=== PATIENT | female | born 1935 | race Caucasian/White ===

== ENCOUNTER 2016-05-20 13:38 | Outpatient (CLI) | payer MEDICARE, OTHER | END 2016-05-20 13:39 | disposition home or self-care (01) | DX: M17.12 Unilateral primary osteoarthritis, left knee (principal) ==

== ENCOUNTER 2016-09-15 11:02 | Outpatient (CLI) | payer MEDICARE, OTHER | END 2016-09-15 11:03 | disposition home or self-care (01) | DX: R41.3 Other amnesia (principal) ==

== ENCOUNTER 2017-03-29 09:49 | Outpatient (CLI) | payer MEDICARE, OTHER ==
--- NOTE | 2017-03-29 12:03 | XRAY Report ---
TWO-VIEW CHEST: 03/29/2017 CLINICAL INDICATION: Cough. FINDINGS: Frontal and lateral views of the chest demonstrate a normal cardiac silhouette. The lungs are clear. No effusion or pneumothorax is present. IMPRESSION: NO EVIDENCE OF ACUTE CARDIOPULMONARY DISEASE. NO SIGNIFICANT INTERVAL CHANGE FROM 06/20. JOB #: [id number] EXT JOB #:[id number]
--- NOTE | 2017-03-29 12:04 | XRAY Report ---
TWO-VIEW RIGHT HIP: 03/29/2017 CLINICAL INDICATION: Pain. FINDINGS: Frontal view of the hips and pelvis and frogleg lateral view of the right hip demonstrate mild osteoarthritis, with marginal osteophytes. There is no evidence of fracture or dislocation. No radiopaque foreign body is seen in the soft tissues. IMPRESSION: MILD OSTEOARTHRITIS. JOB #: [id number] EXT JOB #:[id number]
--- NOTE | 2017-03-29 12:06 | XRAY Report ---
COMPLETE CERVICAL SPINE: 03/29/2017 CLINICAL INDICATION: Pain, decreased range of motion. FINDINGS: AP, lateral, oblique, odontoid views of the cervical spine demonstrate qimkxrwz-jv-kzwrin degenerative disc and facet disease, with disk space narrowing worst at C5-6. There is left worse th an right osseous neural foraminal narrowing from C5 to C7. There is no evidence of fracture or sublu xation. Prevertebral soft tissues are unremarkable. IMPRESSION: [id number] DEGENERATIVE CHANGES, WITH OSSEOUS NEURAL FORAMINAL NARROWING. JOB #: [id number] EXT JOB #:[id number]
== END 2017-03-29 09:50 | disposition home or self-care (01) ==
LOC: DI.S 09:49
PROVIDERS: ATTEND Physician Assistant
DX: M16.11 Unilateral primary osteoarthritis, right hip (principal); M50.30 Other cervical disc degeneration, unspecified cervical region; M47.892 Other spondylosis, cervical region; R05 Cough
CPT/HCPCS: 71020; 72050

== ENCOUNTER 2018-01-23 09:18 | Outpatient (CLI) | payer MEDICARE, OTHER ==
[2018-01-23 18:23] LABS: ALBUMIN 4.3 g/dL (3.2-5.5); ALBUMIN/GLOBULIN RATIO 1.5 (1.0-2.2); ALKALINE PHOSPHATASE 47 IU/L (42-121); ALT ALANINE AMINOTRANSFERASE 19 IU/L (10-60); AST ASPARTATE AMINOTRANSFERASE 30 IU/L (10-42); BUN - BLOOD UREA NITROGEN 20 mg/dL (6-20); CALCIUM 9.4 mg/dL (8.5-10.3); CARBON DIOXIDE - CO2 25 mmol/L (21-32); CHLORIDE 104 mmol/L (101-111); CHOL/HDL RATIO 3.5 (<4.4); CHOLESTEROL 332 mg/dL; CREATININE 0.9 mg/dL (0.4-1.0); GFR - MDRD 60 (>89); GLUCOSE 91 mg/dL (70-100); HDL CHOLESTEROL 95 mg/dL; LDL CHOLESTEROL,CALCULATED 222 mg/dL; LDL/HDL RATIO 2.3 (<4.4); SODIUM 138 mmol/L (135-145); TOTAL PROTEIN 7.1 g/dL (6.7-8.2); VLDL CHOLESTEROL 15 mg/dL
[2018-01-23 18:55] LABS: BASOPHILS % (AUTO) 0.9 %; EOSINOPHILS # (AUTO) 0.1 10^3/uL (0.0-0.7); EOSINOPHILS % (AUTO) 2.9 %; HGB - HEMOGLOBIN 14.1 g/dL (12.0-16.0); LYMPHOCYTES % (AUTO) 25.1 %; MEAN CORPUSCULAR HEMOGLOBIN 32.1 pg (27.0-31.0); MEAN CORPUSCULAR HGB CONC 33.5 g/dL (32.0-36.0); MEAN CORPUSCULAR VOLUME 95.7 fL (81.0-99.0); MEAN PLATELET VOLUME 10.1 fL (7.9-10.8); MONOCYTES # (AUTO) 0.3 10^3/uL (0.0-1.0); MONOCYTES % (AUTO) 7.7 %; NEUTROPHILS # (AUTO) 2.6 10^3/uL (1.5-6.6); NEUTROPHILS % (AUTO) 63.4 %; PLT - PLATELET COUNT 223 10^3/uL (130-450); RED BLOOD COUNT 4.39 10^6/uL (4.20-5.40); RED CELL DISTRIBUTION WIDTH 13.5 % (12.0-15.0); WHITE BLOOD COUNT 4.1 x10^3/uL (4.8-10.8)
[2018-01-23 19:20] LABS: PLATELET ESTIMATE, MANUAL NORMAL (130-450,000) (NORMAL); RBC MORPHOLOGY (MULTIPLE) NORMAL APPEARANCE (NORMAL)
== END 2018-01-23 09:19 | disposition home or self-care (01) ==
LOC: LAB.F 09:18
PROVIDERS: ATTEND Physician Assistant
DX: I10 Essential (primary) hypertension (principal); E78.5 Hyperlipidemia, unspecified; G64 Other disorders of peripheral nervous system; R41.3 Other amnesia
CPT/HCPCS: 36415; 80053; 80061; 83721; 84443; 85025

== ENCOUNTER 2018-01-25 12:53 | Outpatient (CLI) | payer MEDICARE, OTHER ==
--- NOTE | 2018-01-26 11:03 | Mammography Report ---
Reason: UNSPECIFIED LUMP IN UNSPECIFIED BREAST Procedure Date: 01/25/2018 Accession Number: [id number] / [id number] Procedure: ARLIN - Diagnostic Dig Bilat CPT Code: FULL RESULT: EXAM: Diagnostic Dig Bilat DATE: 01/25/2018 1:42 PM CLINICAL HISTORY: 82-year-old female who presents with bilateral lumps with tenderness for approximately 1 month. TECHNIQUE: Bilateral CC and MLO views were obtained. Left spot magnified CC and MLO views were also obtained. COMPARISON: 08/10/2012, 06/20/2010, 06/12/2009, 04/04/2008. FINDINGS: The breasts demonstrate heterogeneously dense fibroglandular parenchyma bilaterally. No mammographic correlate is identified to the 2 palpable markers placed on the right breast. Typically benign coarse calcifications and typically benign large rodlike calcifications are identified bilaterally. A focal asymmetry seen in the left breast resolves with spot mammographic views. No suspicious architectural distortion, mass or suspicious calcifications are identified. IMPRESSION: Benign findings RECOMMENDATION: Recommend routine annual Screening mammography unless otherwise clinically indicated. BIRADS CATEGORY 2: Benign findings STANDARD QUALIFYING STATEMENTS: 1. This examination was not reviewed with the aid of Computer-Aided Detection (CAD). 2. A negative or benign imaging report should not delay biopsy if clinically suspicious findings are present. Consider surgical consultation if warrented. More than 5% of cancers are not identified by imaging. 3. Dense breasts may obscure an underlying neoplasm.
== END 2018-01-25 12:54 | disposition home or self-care (01) ==
LOC: DI 12:53
PROVIDERS: ATTEND Physician Assistant
DX: N63.23 Unspecified lump in the left breast, lower outer quadrant (principal); N63.10 Unspecified lump in the right breast, unspecified quadrant; I10 Essential (primary) hypertension; R07.9 Chest pain, unspecified
CPT/HCPCS: 71046; 77066

== ENCOUNTER 2018-01-25 12:56 | Outpatient (CLI) | payer MEDICARE, OTHER ==
--- NOTE | 2018-01-25 16:45 | XRAY Report ---
Reason: CHEST WALL HTN,TENDERNESS L UPPER/MILD CHEST Procedure Date: 01/25/2018 Accession Number: [id number] / [id number] Procedure: XR - Chest 2 View X-Ray CPT Code: 18519 FULL RESULT: EXAM: CHEST RADIOGRAPHY EXAM DATE: 01/25/2018 02:25 PM. CLINICAL HISTORY: CHEST WALL HTN,TENDERNESS L UPPER/MILD CHEST. COMPARISON: CHEST 2 VIEW PA/LAT 03/29/2017 10:03 AM. TECHNIQUE: 2 views. FINDINGS: Lungs/Pleura: No focal opacities evident. No pleural effusion. No pneumothorax. Normal volumes. Mediastinum: Heart and mediastinal contours are unremarkable. Other: None. IMPRESSION: No acute cardiopulmonary abnormality. RADIA
== END 2018-01-25 12:57 | disposition home or self-care (01) ==
LOC: DI 12:56
PROVIDERS: ATTEND Physician Assistant
DX: R07.9 Chest pain, unspecified (principal); I10 Essential (primary) hypertension
CPT/HCPCS: 71046

== ENCOUNTER 2018-12-12 09:51 | Outpatient (CLI) | payer MEDICARE, OTHER ==
--- NOTE | 2018-12-12 10:52 | XRAY Report ---
Reason: PAIN IN RIGHT HIP JOINT, LOW BACK PAIN, DYSPNEA ON Procedure Date: 12/12/2018 Accession Number: [id number] / [id number] Procedure: XRS - Lumbar Spine 2 View CPT Code: FULL RESULT: EXAM: LUMBOSACRAL SPINE RADIOGRAPHY EXAM DATE: 12/12/2018 10:24 AM. CLINICAL HISTORY: Low back pain. COMPARISONS: HIP BILAT 12/12/2018 10:18 AM. TECHNIQUE: 3 views. FINDINGS: Alignment: Grade 1-2 anterolisthesis at L4-L5 measuring 8 mm is seen. Bones: Five koh-hdj-ffkbqbr lumbar vertebral bodies are present. No fractures or bone lesions. Disks: There is moderate diffuse degenerative disk disease seen throughout the mid and lower aspects of the lumbar spine. Facets: There is moderate diffuse degenerative facet disease seen throughout the mid and lower aspect of the lumbar spine. Sacroiliac Joints: Unremarkable. Soft Tissues: Normal. The visualized bowel gas pattern is normal. IMPRESSION: Grade 1-2 anterolisthesis at L4-L5 with superimposed moderate degenerative changes. Underlying spinal canal stenosis is suspected. No fracture. RADIA
--- NOTE | 2018-12-12 10:53 | XRAY Report ---
Reason: PAIN IN RIGHT HIP JOINT, LOW BACK PAIN, DYSPNEA ON Procedure Date: 12/12/2018 Accession Number: [id number] / [id number] Procedure: XRS - Hips 2V BILAT CPT Code: FULL RESULT: EXAM: BILATERAL HIP RADIOGRAPHY EXAM DATE: 12/12/2018 10:24 AM. CLINICAL HISTORY: Bilateral hip pain. COMPARISON: HIP W/PELVIS 2-3V RT 03/29/2017 10:22 AM. TECHNIQUE: 2 views each. FINDINGS: Bones: Normal. No fractures or bone lesion. Right Hip: Mild osteoarthritic changes are seen. No significant joint space narrowing is seen. Alignment is preserved. Left Hip: Moderate osteoarthritic changes are seen. Mild joint space narrowing is seen. Alignment is preserved. Soft Tissues: Normal. No soft tissue swelling. IMPRESSION: Mild to moderate bilateral hip DJD, left side worse than right side. Appearance is similar to 03/29/2017. No acute findings. RADIA
--- NOTE | 2018-12-12 10:53 | XRAY Report ---
Reason: PAIN IN RIGHT HIP JOINT, LOW BACK PAIN, DYSPNEA ON Procedure Date: 12/12/2018 Accession Number: [id number] / [id number] Procedure: XRS - Chest 2 View X-Ray CPT Code: 02532 FULL RESULT: EXAM: CHEST RADIOGRAPHY EXAM DATE: 12/12/2018 10:24 AM. CLINICAL HISTORY: Shortness of breath. COMPARISON: CHEST 2 VIEW 01/25/2018 2:19 PM. TECHNIQUE: 2 views. FINDINGS: Lungs/Pleura: No focal opacities evident. No pleural effusion. No pneumothorax. Normal volumes. Mediastinum: Heart and mediastinal contours are notable for aortic calcification. Other: None. IMPRESSION: No acute cardiopulmonary abnormality demonstrated. RADIA
== END 2018-12-12 09:52 | disposition home or self-care (01) ==
LOC: DI.S 09:51
PROVIDERS: ATTEND Physician Assistant
DX: M16.0 Bilateral primary osteoarthritis of hip (principal); R06.00 Dyspnea, unspecified; M51.36 Other intervertebral disc degeneration, lumbar region; M47.816 Spondylosis without myelopathy or radiculopathy, lumbar region; M43.16 Spondylolisthesis, lumbar region
CPT/HCPCS: 71046; 72100; 73521

== ENCOUNTER 2019-05-20 17:26 | Outpatient (CLI) | payer MEDICARE, OTHER | END 2019-05-20 17:27 | disposition critical access hospital (66) | LOC: EMS 17:26 | PROVIDERS: ATTEND Surgery | DX: S09.90XA Unspecified injury of head, initial encounter (principal); R41.0 Disorientation, unspecified; R53.83 Other fatigue; W18.30XA Fall on same level, unspecified, initial encounter; Y92.030 Kitchen in apartment as the place of occurrence of the external cause | CPT/HCPCS: A0425; A0429 ==

== ENCOUNTER 2019-05-20 18:01 | Emergency (ER) | payer MEDICARE, OTHER ==
[2019-05-20] MEDS ORDERED: TETANUS/DIPHTHERIA/PERTUSSIS 0.5 ML SYRINGE IM ONE (18:27)
--- NOTE | 2019-05-20 18:28 | ED Physician Documentation ---
PD HPI HEAD INJURY - Stated complaint Stated Complaint: GLF - Chief complaint Chief Complaint: Trauma Hd/Nk - History obtained from History obtained from: Patient - History of Present Illness Mechanism of head injury: Fell (83-year-old woman presents by ambulance after a fall, she is confused and does not remember the fall. In fact she can even tell me where she is right now. She cannot state that she is in the hospital. She says the year is 193. The nurse called the daughter who said they suspect she has dementia. Reportedly she lives alone. Reportedly also has been drinking today.) Review of Systems Unable to obtain: AMS, Confused, Dementia PD PAST MEDICAL HISTORY - Present Medications Home Medications: Ambulatory Orders Medication Instructions Recorded Confirmed Ciprofloxacin [Cipro] 250 mg PO Q12H #10 tablet 05/20/19 - Allergies Allergies/Adverse Reactions: Allergies Allergy/AdvReac Type Severity Reaction Status Date / Time No Known Drug Allergies Allergy Verified 05/20/19 18:15 PD ED PE NORMAL - Vitals Vital signs reviewed: Yes - General General: Other (She is alert to person only, poor historian for recent events.) - HEENT HEENT: PERRL, EOMI, Other (A poorly characterized wound in the back of the head, incompletely evaluated in initial evaluation because of overlying blood, I will ask 1 of the techs to clean it up so I get a better look.) - Neck Neck: No bony TTP - Cardiac Cardiac: RRR, No murmur - Respiratory Respiratory: No respiratory distress, Clear bilaterally - Abdomen Abdomen: Normal bowel sounds, Soft, Non tender - Back Back: No CVA TTP, No spinal TTP - Derm Derm: Normal color, Warm and dry - Extremities Extremities: No edema, No calf tenderness / cord - Neuro Neuro: No motor deficit, No sensory deficit, Normal speech Results - Vitals Vitals: Vital Signs - 24 hr 05/20/19 18:06 Temperature 36.8 C Heart Rate 64 Respiratory 18 Rate Blood Pressure 150/90 H O2 Saturation 96 Oxygen O2 Source Room air - Labs Labs: Laboratory Tests 05/20/19 05/20/19 05/20/19 18:41 18:41 18:41 WBC 5.3 RBC 4.22 Hgb 13.1 Hct 40.9 MCV 96.9 MCH 31.0 MCHC 32.0 RDW 13.0 Plt Count 237 MPV 11.1 H Neut # (Auto) 3.3 Lymph # (Auto) 1.3 L [place] # (Auto) 0.4 Eos # (Auto) 0.2 Baso # (Auto) 0.0 Absolute Nucleated RBC 0.00 Nucleated RBC % 0.0 Sodium 139 Potassium 3.7 Chloride 103 Carbon Dioxide 24 Anion Gap 12.0 BUN 20 Creatinine 1.0 Estimated GFR (MDRD) 53 L Glucose 109 H Lactic Acid 2.2 Calcium 9.6 Total Bilirubin 0.3 AST 29 ALT 24 Alkaline Phosphatase 51 Total Protein 7.1 Albumin 4.2 Globulin 2.9 Albumin/Globulin Ratio 1.4 Lipase 40 TSH Urine Color Urine Clarity Urine pH Ur Specific [place] Urine Protein Urine Glucose (UA) Urine Ketones Urine Occult Blood Urine Nitrite Urine Bilirubin Urine Urobilinogen Ur Leukocyte Esterase Urine RBC Urine WBC Urine WBC Clumps Ur Squamous Epith Cells Urine Bacteria Ur Microscopic Review Urine Culture Comments Ethyl Alcohol 186.6 05/20/19 05/20/19 18:41 19:00 WBC RBC Hgb Hct MCV MCH MCHC RDW Plt Count MPV Neut # (Auto) Lymph # (Auto) [place] # (Auto) Eos # (Auto) Baso # (Auto) Absolute Nucleated RBC Nucleated RBC % Sodium Potassium Chloride Carbon Dioxide Anion Gap BUN Creatinine Estimated GFR (MDRD) Glucose Lactic Acid Calcium Total Bilirubin AST ALT Alkaline Phosphatase Total Protein Albumin Globulin Albumin/Globulin Ratio Lipase TSH 1.50 Urine Color YELLOW Urine Clarity HAZY Urine pH 6.0 Ur Specific [place] 1.010 Urine Protein NEGATIVE Urine Glucose (UA) NEGATIVE Urine Ketones NEGATIVE Urine Occult Blood NEGATIVE Urine Nitrite POSITIVE H Urine Bilirubin NEGATIVE Urine Urobilinogen 0.2 (NORMAL) Ur Leukocyte Esterase SMALL H Urine RBC 0-5 Urine WBC 6-10 H Urine WBC Clumps PRESENT Ur Squamous Epith Cells FEW Squamous Urine Bacteria Few Ur Microscopic Review INDICATED Urine Culture Comments INDICATED Ethyl Alcohol PD MEDICAL DECISION MAKING - ED course ED course: This is an 83-year-old woman who presents by ambulance after fall hitting the back of her head, she seems altered, unclear initially how much of this is acute or chronic. Supportive son and eventually arrived, did not seem surprised of her blood alcohol level. Says though that she is pretty much at her baseline and they are pursuing alternative living arrangements because he agrees it is no longer safe for her to live alone The wound on the back of her head was cleansed, it was just a small abrasion. Wound care advice was given to the son. She was given Cipro for apparent UTI as well. Departure - Departure Disposition: 01 Home, Self Care Clinical Impression: Concussion Qualifiers: Encounter type: initial encounter Loss of consciousness presence/duration: with LOC of 30 min or less Qualified Code(s): S06.0X1A - Concussion with loss of consciousness of 30 minutes or less, initial encounter Injury of head and neck Qualifiers: Encounter type: initial encounter Qualified Code(s): S09.90XA - Unspecified injury of head, initial encounter; S19.9XXA - Unspecified injury of neck, initial encounter Dementia Qualifiers: Dementia type: unspecified type Dementia behavioral disturbance: without behavioral disturbance Qualified Code(s): F03.90 - Unspecified dementia without behavioral disturbance Alcohol intoxication Qualifiers: Complication of substance-induced condition: with delirium Qualified Code(s): F10.921 - Alcohol use, unspecified with intoxication delirium UTI (urinary tract infection) Qualifiers: Urinary tract infection type: acute cystitis Hematuria presence: without hematuria Qualified Code(s): N30.00 - Acute cystitis without hematuria Condition: Good Record reviewed to determine appropriate education?: Yes Instructions: ED Alcohol Intoxication Prescriptions: Ciprofloxacin [Cipro] 250 mg PO Q12H #10 tablet Comments: Avoid alcohol, return for new or worsening symptoms, as discussed a recommend consideration of alternative living arrangements where you do not live alone. You can also discuss this with Chelsea Lopez. Continue to not drive as you are already not doing. We will culture your urine, the results should be done in 48-72 hours. If an antibiotic change is necessary we will call you. Return if worse in the meantime, especially if you develop increasing flank pain, fevers, or cannot keep down the medication.
[2019-05-20 18:47] LABS: BASOPHILS % (AUTO) 0.8 %; EOSINOPHILS # (AUTO) 0.2 10^3/uL (0.0-0.7); EOSINOPHILS % (AUTO) 3.6 %; HGB - HEMOGLOBIN 13.1 g/dL (12.0-16.0); LYMPHOCYTES # (AUTO) 1.3 10^3/uL (1.5-3.5); LYMPHOCYTES % (AUTO) 24.1 %; MEAN CORPUSCULAR VOLUME 96.9 fL (81.0-99.0); MEAN PLATELET VOLUME 11.1 fL (7.9-10.8); MONOCYTES # (AUTO) 0.4 10^3/uL (0.0-1.0); MONOCYTES % (AUTO) 8.3 %; NEUTROPHILS # (AUTO) 3.3 10^3/uL (1.5-6.6); NEUTROPHILS % (AUTO) 62.8 %; PLT - PLATELET COUNT 237 10^3/uL (130-450); RED BLOOD COUNT 4.22 10^6/uL (4.20-5.40); WHITE BLOOD COUNT 5.3 x10^3/uL (4.8-10.8)
[2019-05-20 18:57] LABS: ALBUMIN 4.2 g/dL (3.2-5.5); ALBUMIN/GLOBULIN RATIO 1.4 (1.0-2.2); BILIRUBIN,TOTAL 0.3 mg/dL (0.2-1.0); CALCIUM 9.6 mg/dL (8.5-10.3); TOTAL PROTEIN 7.1 g/dL (6.7-8.2)
[2019-05-20 19:18] LABS: BILIRUBIN,URINE NEGATIVE (NEGATIVE); GLUCOSE, URINE (UA) NEGATIVE (NEGATIVE); KETONES,URINE (UA) NEGATIVE (NEGATIVE); LEUKOCYTE ESTERASE, URINE SMALL (NEGATIVE); NITRITE,URINE POSITIVE (NEGATIVE); OCCULT BLOOD,URINE NEGATIVE (NEGATIVE); PROTEIN,URINE NEGATIVE (NEGATIVE); UROBILINOGEN,URINE 0.2 (NORMAL) E.U./dL (NORMAL)
[2019-05-20 19:20] LABS: CLARITY,URINE HAZY (CLEAR)
[2019-05-20 19:31] LABS: BACTERIA,URINE Few /HPF (None Seen); RBC,URINE 0-5 /HPF (0-5); SQUAMOUS EPITHELIAL CELL,UR FEW Squamous (<= Few); WBC CLUMPS,URINE PRESENT
--- NOTE | 2019-05-20 20:16 | CT Report ---
Reason: head injury Procedure Date: 05/20/2019 Accession Number: [id number] / [id number] Procedure: CT - HEAD WO CPT Code: Final Report FULL RESULT: EXAM: CT HEAD EXAM DATE: 05/20/2019 06:52 PM. CLINICAL HISTORY: Head injury. COMPARISON: HEAD W/O 09/15/2016 11:17 AM. TECHNIQUE: Multiaxial CT images were obtained from the foramen magnum to the vertex. Reformats: Sagittal and coronal. IV contrast: None. In accordance with CT protocol optimization, one or more of the following dose reduction techniques were utilized for this exam: automated exposure control, adjustment of mA and/or KV based on patient size, or use of iterative reconstructive technique. FINDINGS: Parenchyma: No intraparenchymal hemorrhage. No evidence of mass, midline shift, or CT findings of infarction. June-white differentiation is distinct. Some decreased attenuation in the periventricular white matter is likely chronic microangiopathy. Unchanged compared to the prior exam. Extraaxial Spaces: Volume loss consistent with age. No subdural or epidural collections identified. Ventricles: Normal in size and position. Sinuses and Orbits: Imaged paranasal sinuses, orbits, and mastoids show no significant abnormality. Bones: No evidence of fracture or calvarial defect. Other: None. IMPRESSION: No acute intracranial abnormality. RADIA
--- NOTE | 2019-05-20 20:24 | CT Report ---
Reason: head injury Procedure Date: 05/20/2019 Accession Number: [id number] / [id number] Procedure: CT - CERVICAL SPINE WO CPT Code: Final Report FULL RESULT: EXAM: CT CERVICAL SPINE WITHOUT CONTRAST DATE: 05/20/2019 06:52 PM. HISTORY: Head injury. COMPARISONS: HEAD W/O 09/15/2016 11:17 AM CERVICAL SPINE COMPLETE 03/29/2017 10:12 AM. TECHNIQUE: Thin-section axial images were acquired of the cervical spine without contrast. Post-processing: Coronal and sagittal reformats. Other: None. In accordance with CT protocol optimization, one or more of the following dose reduction techniques were utilized for this exam: automated exposure control, adjustment of mA and/or KV based on patient size, or use of iterative reconstructive technique. FINDINGS: Alignment: 2 mm of retrolisthesis of C5 on C6 and 2 mm of anterolisthesis of C7 on T1. Similar appearance on plain films of the cervical spine from 03/29/2017. Bones: No fracture or bone lesion. Interspace Levels/Facets: C1-C2: Unremarkable. C2-C3: Mild to moderate disk height loss. Mild right facet disease. C3-C4: Mild disk height loss. Moderate to severe left facet disease and neural foraminal stenosis. No central canal stenosis. C4-C5: Moderate to severe left facet disease and neural foraminal stenosis. No central canal stenosis. C5-C6: Moderate to severe disk height loss. Uncovertebral hypertrophic changes and facet disease. Moderate to severe bilateral neural foraminal stenosis, right more than left. C6-C7: Moderate to severe disk height loss. Uncovertebral hypertrophic changes and facet disease. Mild to moderate bilateral neural foraminal stenosis, right more than left. C7-T1: Mild bilateral facet arthropathy, moderate to severe bilateral neural foraminal stenosis. No central canal stenosis. Musculature: Mild fatty atrophy of the paraspinal musculature. Other: The paravertebral and prevertebral soft tissues are unremarkable. The lung apices are clear. IMPRESSION: Degenerative disk disease, but no acute fracture or subluxation. RADIA
[2019-05-20] MEDS ORDERED: CIPROFLOXACIN 250 MG TABLET PO STA (20:28)
[2019-05-20 20:43] VITALS: BP 152/80
== END 2019-05-20 20:57 | disposition home or self-care (01) ==
LOC: EDUNIT# → ED 18:01
DX: S06.0X1A Concussion with loss of consciousness of 30 minutes or less, initial encounter (principal); S00.01XA Abrasion of scalp, initial encounter; S19.9XXA Unspecified injury of neck, initial encounter; W18.30XA Fall on same level, unspecified, initial encounter; Z23 Encounter for immunization; F10.921 Alcohol use, unspecified with intoxication delirium; F03.90 Unspecified dementia, unspecified severity, without behavioral disturbance, psychotic disturbance, mood disturbance, and anxiety; N30.00 Acute cystitis without hematuria; M50.321 Other cervical disc degeneration at C4-C5 level
CPT/HCPCS: 36415; 70450; 72125; 80053; 81001; 83605; 83690; 84443; 85025; 87086; 87181; 90471; 90715; 99281; 99284; A9270; 80320; 81003

== ENCOUNTER 2020-01-11 08:00 | Outpatient (CLI) | payer MEDICARE, OTHER | END 2020-01-11 23:59 | disposition home or self-care (01) | LOC: LAB.R 08:00 | PROVIDERS: ATTEND Family Medicine | DX: N30.00 Acute cystitis without hematuria (principal) | CPT/HCPCS: 87086 ==

== ENCOUNTER 2020-01-28 08:00 | Outpatient (CLI) | payer MEDICARE, OTHER | END 2020-01-28 23:59 | disposition home or self-care (01) | LOC: LAB.R 08:00 | PROVIDERS: ATTEND Registered Nurse | DX: N30.00 Acute cystitis without hematuria (principal) | CPT/HCPCS: 87086 ==

== ENCOUNTER 2020-01-31 08:00 | Outpatient (CLI) | payer MEDICARE, OTHER | END 2020-01-31 23:59 | disposition home or self-care (01) | LOC: LAB.R 08:00 | PROVIDERS: ATTEND Registered Nurse | DX: N39.0 Urinary tract infection, site not specified (principal) | CPT/HCPCS: 87086 ==

== ENCOUNTER 2020-02-27 07:00 | Outpatient (CLI) | payer MEDICARE, OTHER | END 2020-02-27 23:59 | disposition home or self-care (01) | LOC: LAB.R 07:00 | PROVIDERS: ATTEND Registered Nurse | DX: N30.00 Acute cystitis without hematuria (principal) | CPT/HCPCS: 87086 ==

== ENCOUNTER 2020-04-22 08:00 | Outpatient (CLI) | payer MEDICARE, OTHER | END 2020-04-22 08:01 | disposition home or self-care (01) | LOC: LAB.R 08:00 | PROVIDERS: ATTEND Registered Nurse | DX: N30.00 Acute cystitis without hematuria (principal) | CPT/HCPCS: 87086 ==

== ENCOUNTER 2020-08-24 08:00 | Outpatient (CLI) | payer MEDICARE, OTHER ==
--- NOTE | 2020-08-24 15:59 | XRAY Report ---
PROCEDURE: Knee 3 View LT INDICATIONS: LEFT KNEE PAIN TECHNIQUE: 3 views of the left knee(s) were acquired. COMPARISON: None. FINDINGS: Bones: No fractures or dislocations. No suspicious bony lesions. There is mild medial and lateral compartment degenerative osteoarthritic change with joint space narrowing mild in severity and no eff usion or loose body is found. Soft tissues: No joint effusion. No suspicious soft tissue calcifications. IMPRESSION: Mild medial and lateral compartment knee joint osteoarthritis without effusion. Reviewed by: Charles Quintero MD on 08/24/2020 3:58 PM PDT Approved by: Charles Quintero MD on 08/24/2020 3:58 PM PDT Station ID: [id number]
== END 2020-08-24 23:59 | disposition home or self-care (01) ==
LOC: DI.S 08:00
PROVIDERS: ATTEND Physician Assistant
DX: M17.12 Unilateral primary osteoarthritis, left knee (principal)

== ENCOUNTER 2020-11-25 14:00 | Outpatient (CLI) | payer MEDICARE, OTHER | END 2020-11-25 23:59 | disposition home or self-care (01) | LOC: LAB.S 14:00 | PROVIDERS: ATTEND Physician Assistant Medical | DX: H60.11 Cellulitis of right external ear (principal) | CPT/HCPCS: 87070; 87147; 87181; 87186; 87205; 87529 ==

== ENCOUNTER 2020-11-25 14:00 | Outpatient (CLI) | payer MEDICARE, OTHER | END 2020-11-25 23:59 | disposition home or self-care (01) | LOC: LAB.S 14:00 | PROVIDERS: ATTEND Physician Assistant Medical | DX: H60.11 Cellulitis of right external ear (principal) | CPT/HCPCS: 36415; 81599; 87529 ==

== ENCOUNTER 2021-02-25 12:33 | Outpatient (CLI) | payer MEDICARE, OTHER | END 2021-02-25 12:34 | disposition critical access hospital (66) | LOC: EMS 12:33 | DX: R52 Pain, unspecified (principal); R41.82 Altered mental status, unspecified | CPT/HCPCS: A0425; A0427 ==

== ENCOUNTER 2021-02-25 13:11 | Emergency (ER) | payer MEDICARE, OTHER ==
--- NOTE | 2021-02-25 13:25 | ED Physician Documentation ---
PD HPI FEMALE - Stated complaint Stated Complaint: GEN WEAKNESS/PX - History obtained from History obtained from: Patient, EMS - Additional information Additional information: This is a 85-year-old woman who presents by ambulance. She is demented and cared for by her son who is not immediately available, but reportedly woke up this morning with very mildly altered mental status over baseline and complaints of all over body pain. No reported fevers. Paramedics state this is consistent with prior episodes of UTI. Patient does admit to frequency but unclear the acuity of that as she is a very poor historian. Review of Systems Unable to obtain: Dementia PD PAST MEDICAL HISTORY - Past Medical History Neuro: Head injury - Present Medications Home Medications: Ambulatory Orders Medication Instructions Recorded Confirmed Ciprofloxacin [Cipro] 250 mg PO Q12H #10 tablet 05/20/19 - Allergies Allergies/Adverse Reactions: Allergies Allergy/AdvReac Type Severity Reaction Status Date / Time No Known Drug Allergies Allergy Verified 05/20/19 18:15 - Social History Does the pt smoke?: No Smoking Status: Never smoker Does the pt drink ETOH?: Yes PD ED PE NORMAL - Vitals Vital signs reviewed: Yes - General General: No acute distress, Well developed/nourished, Other (She is alert and oriented to person only, and even that requires prompting. She is complaining about the blood pressure cuff and seems anxious.) - HEENT HEENT: PERRL, EOMI - Neck Neck: Supple, no meningeal sign, No bony TTP - Cardiac Cardiac: RRR, No murmur - Respiratory Respiratory: No respiratory distress, Clear bilaterally - Abdomen Abdomen: Normal bowel sounds, Soft, Non tender - Neuro Eye Opening: Spontaneous Motor: Obeys Commands Verbal: Confused GCS Score: 14 Results - Vitals Vitals: Vital Signs - 24 hr 02/25/21 02/25/21 13:21 14:38 Temperature 36.6 C Heart Rate 61 61 Respiratory 30 H 18 Rate Blood Pressure 154/99 H 131/65 H O2 Saturation 98 99 Oxygen O2 Source Room air - Labs Labs: Laboratory Tests 02/25/21 02/25/21 02/25/21 13:34 13:34 13:48 WBC 6.2 RBC 4.32 Hgb 13.4 Hct 40.7 MCV 94.2 MCH 31.0 MCHC 32.9 RDW 12.8 Plt Count 227 MPV 10.8 Neut # (Auto) 4.6 Lymph # (Auto) 1.0 L [place] # (Auto) 0.5 Eos # (Auto) 0.1 Baso # (Auto) 0.0 Absolute Nucleated RBC 0.00 Nucleated RBC % 0.0 Sodium 142 Potassium 3.8 Chloride 109 Carbon Dioxide 23 Anion Gap 10.0 BUN 24 H Creatinine 0.9 Estimated GFR (MDRD) 60 L Glucose 102 H Calcium 9.3 Total Bilirubin 1.2 H AST 22 ALT 14 Alkaline Phosphatase 61 Total Protein 6.5 L Albumin 3.8 Globulin 2.7 Albumin/Globulin Ratio 1.4 Lipase 32 Urine Color YELLOW Urine Clarity CLEAR Urine pH 7.5 Ur Specific [place] 1.020 Urine Protein NEGATIVE Urine Glucose (UA) NEGATIVE Urine Ketones NEGATIVE Urine Occult Blood NEGATIVE Urine Nitrite NEGATIVE Urine Bilirubin NEGATIVE Urine Urobilinogen 0.2 (NORMAL) Ur Leukocyte Esterase NEGATIVE Ur Microscopic Review NOT INDICATED Urine Culture Comments NOT INDICATED PD MEDICAL DECISION MAKING - ED course ED course: This is a raffy 85-year-old woman who presents with agitation today, slight decrease in normally poor mental status and concern for UTI. No evident emergency medical condition was found. She does have elevated BUN and son thought she might be dehydrated and received a liter of saline. Departure - Departure Disposition: 01 Home, Self Care Clinical Impression: Acute pain Dementia Qualifiers: Dementia type: unspecified type Dementia behavioral disturbance: without behavioral disturbance Qualified Code(s): F03.90 - Unspecified dementia without behavioral disturbance Condition: Stable Record reviewed to determine appropriate education?: Yes Instructions: ED Dementia Caregiver Support, ED Acute Pain [facility]O Comments: Call your doctor to arrange a follow-up appointment, make the next available appointment. In the interim, return anytime if worse or if new symptoms develop.
[2021-02-25] MEDS ORDERED: SODIUM CHLORIDE 0.9% 1,000 ML IV STA (13:30)
[2021-02-25 13:43] LABS: BASOPHILS % (AUTO) 0.3 %; EOSINOPHILS # (AUTO) 0.1 10^3/uL (0.0-0.7); EOSINOPHILS % (AUTO) 1.9 %; HCT - HEMATOCRIT 40.7 % (37.0-47.0); HGB - HEMOGLOBIN 13.4 g/dL (12.0-16.0); LYMPHOCYTES % (AUTO) 16.2 %; MEAN CORPUSCULAR HGB CONC 32.9 g/dL (32.0-36.0); MEAN CORPUSCULAR VOLUME 94.2 fL (81.0-99.0); MEAN PLATELET VOLUME 10.8 fL (7.9-10.8); MONOCYTES # (AUTO) 0.5 10^3/uL (0.0-1.0); MONOCYTES % (AUTO) 7.2 %; NEUTROPHILS # (AUTO) 4.6 10^3/uL (1.5-6.6); NEUTROPHILS % (AUTO) 74.1 %; PLT - PLATELET COUNT 227 10^3/uL (130-450); RED BLOOD COUNT 4.32 10^6/uL (4.20-5.40); RED CELL DISTRIBUTION WIDTH 12.8 % (12.0-15.0); WHITE BLOOD COUNT 6.2 x10^3/uL (4.8-10.8)
[2021-02-25 13:56] LABS: ALBUMIN 3.8 g/dL (3.2-5.5); ALBUMIN/GLOBULIN RATIO 1.4 (1.0-2.2); BILIRUBIN,TOTAL 1.2 mg/dL (0.2-1.0); CALCIUM 9.3 mg/dL (8.5-10.3); CREATININE 0.9 mg/dL (0.4-1.0); POTASSIUM 3.8 mmol/L (3.5-5.0); TOTAL PROTEIN 6.5 g/dL (6.7-8.2)
[2021-02-25 13:59] LABS: BILIRUBIN,URINE NEGATIVE (NEGATIVE); GLUCOSE, URINE (UA) NEGATIVE (NEGATIVE); KETONES,URINE (UA) NEGATIVE (NEGATIVE); LEUKOCYTE ESTERASE, URINE NEGATIVE (NEGATIVE); NITRITE,URINE NEGATIVE (NEGATIVE); OCCULT BLOOD,URINE NEGATIVE (NEGATIVE); PH,URINE 7.5 PH (5.0-7.5); PROTEIN,URINE NEGATIVE (NEGATIVE); UROBILINOGEN,URINE 0.2 (NORMAL) E.U./dL (NORMAL)
[2021-02-25 14:07] LABS: CLARITY,URINE CLEAR (CLEAR)
[2021-02-25 15:43] VITALS: BP 143/68
== END 2021-02-25 15:30 | disposition home or self-care (01) ==
LOC: EDUNIT# → ED 13:11 → SUPCPDRO 13:11 → ED 15:30
DX: R52 Pain, unspecified (principal); F03.90 Unspecified dementia, unspecified severity, without behavioral disturbance, psychotic disturbance, mood disturbance, and anxiety; R45.1 Restlessness and agitation; R79.89 Other specified abnormal findings of blood chemistry
CPT/HCPCS: 36415; 51701; 80053; 81001; 81003; 83690; 85025; 87086; 99283

== ENCOUNTER 2021-03-17 09:58 | Outpatient (CLI) | payer MEDICARE, OTHER | END 2021-03-17 09:59 | disposition critical access hospital (66) | LOC: EMS 09:58 | DX: Z04.3 Encounter for examination and observation following other accident (principal); F41.9 Anxiety disorder, unspecified | CPT/HCPCS: A0425; A0429 ==

== ENCOUNTER 2021-03-17 10:37 | Emergency (ER) | payer MEDICARE, OTHER ==
[2021-03-17] MEDS ORDERED: KETOROLAC 15 MG/ML VIAL IVP STA (10:50)
[2021-03-17] MEDS ORDERED: LORazepam 2 MG/ML VIAL IVP STA (10:50)
--- NOTE | 2021-03-17 10:52 | ED Physician Documentation ---
PD HPI Fall - Stated complaint Stated Complaint: FOUND DOWN - History obtained from History obtained from: Patient, Family, EMS - History of Present Illness Mechanism of injury: Unknown Fall distance: Standing position (patient lives in small house built by her son on his property. He checks on her often. He came in this morning to find her on floor next to the bed, with some complaint of left abd pain. No headache. History of dementia so she does not remember how the fall occurred. Son says she has had weak walk.) Where injury occurred: Home Timing - onset: Today (unknown when fell, with last seen last evening.) Injury(ies) location: Abdomen. No: Head, Neck, Chest Quality of pain: Aching Associated symptoms: No: LOC (not likely as she seems to remember slumping/fall.), AMS Review of Systems Unable to obtain: Dementia, Other (info from son, who came to ER.) Constitutional: denies: Fever Nose: denies: Congestion Cardiac: denies: Chest pain / pressure Respiratory: denies: Dyspnea, Cough GI: reports: Constipation (son says constipation with going every 2-3 days, and went larger amount yesterday.). denies: Vomiting, Diarrhea : denies: Incontinent Skin: denies: Abrasion (s), Laceration (s) Neurologic: reports: Confused (baseline dementia for past few years, slowly progressing.). denies: Focal weakness PD PAST MEDICAL HISTORY - Past Medical History Cardiovascular: None Respiratory: None Neuro: Dementia, Head injury - Past Surgical History Ortho: Knee replacement - Present Medications Home Medications: Ambulatory Orders Medication Instructions Recorded Confirmed Escitalopram [Lexapro] 10 mg PO DAILY 02/25/21 02/25/21 Losartan Potassium 25 mg PO DAILY 02/25/21 02/25/21 traZODone [Desyrel] 50 mg PO HS 02/25/21 02/25/21 - Allergies Allergies/Adverse Reactions: Allergies Allergy/AdvReac Type Severity Reaction Status Date / Time No Known Drug Allergies Allergy Verified 03/17/21 10:49 - Social History Does the pt smoke?: No Smoking Status: Never smoker Does the pt drink ETOH?: No Does the pt have substance abuse?: No PD ED PE NORMAL - Vitals Vital signs reviewed: Yes - General General: No acute distress, Well developed/nourished, Other (anxious with some hyperventilating. ). No: Alert and oriented X 3 (oriented to person and place, not sure of time. ) - HEENT HEENT: Atraumatic - Neck Neck: Supple, no meningeal sign, No adenopathy - Cardiac Cardiac: RRR, No murmur - Respiratory Respiratory: Clear bilaterally, Other (no chestwall tenderness. ) - Abdomen Abdomen: Normal bowel sounds, Non distended, No organomegaly, Other (some tender left lateral abd without bruising. Some mild guarding with palpation. ) - Rectal Rectal: Deferred - Back Back: No CVA TTP, No spinal TTP - Derm Derm: Normal color - Extremities Extremities: No edema, No calf tenderness / cord - Neuro Neuro: television newscast director 2-12 intact, No motor deficit, No sensory deficit, Normal speech Eye Opening: Spontaneous Motor: Obeys Commands Verbal: Oriented GCS Score: 15 - Psych Psych: No: Normal affect (anxious) Results - Vitals Vitals: Vital Signs - 24 hr 03/17/21 03/17/21 03/17/21 10:49 11:03 13:17 Temperature 36.6 C 36.4 C L Heart Rate 96 85 88 Respiratory 39 H 23 15 Rate Blood Pressure 144/93 H 102/62 147/102 H O2 Saturation 96 95 100 Oxygen O2 Source Room air - EKG (time done) 11:39 Rate: Rate (enter#) (105) Rhythm: Sinus tachycardia, Other [place]: Normal Ischemia: Normal ST segments. No: ST elevation c/w ischemia, ST depression Compare to prior EKG: Old EKG unavailable - Labs Labs: Laboratory Tests 03/17/21 03/17/21 11:10 11:10 WBC 12.0 H RBC 4.13 L Hgb 12.7 Hct 39.4 MCV 95.4 MCH 30.8 MCHC 32.2 RDW 12.8 Plt Count 266 MPV 10.5 Neut # (Auto) 10.7 H Lymph # (Auto) 0.7 L [place] # (Auto) 0.5 Eos # (Auto) 0.0 Baso # (Auto) 0.0 Absolute Nucleated RBC 0.00 Nucleated RBC % 0.0 Sodium 137 Potassium 3.7 Chloride 102 Carbon Dioxide 23 Anion Gap 12.0 BUN 25 H Creatinine 1.1 H Estimated GFR (MDRD) 47 L Glucose 108 H Calcium 9.4 Total Bilirubin 0.9 AST 31 ALT 17 Alkaline Phosphatase 76 Total Protein 7.4 Albumin 4.3 Globulin 3.1 Albumin/Globulin Ratio 1.4 Lipase 30 - Rads (name of study) abd/pelvic CT Radiology: Prelim report reviewed (no acute process. Moderate stool, with apparent rectal impaction. ), See rad report PD MEDICAL DECISION MAKING - ED course Complexity details: reviewed results, considered differential, d/w patient Departure - Departure Disposition: 01 Home, Self Care Clinical Impression: Abdominal wall contusion Qualifiers: Encounter type: initial encounter Qualified Code(s): S30.1XXA - Contusion of abdominal wall, initial encounter Fall Qualifiers: Encounter type: initial encounter Qualified Code(s): W19.XXXA - Unspecified fall, initial encounter Constipation Qualifiers: Constipation type: unspecified constipation type Qualified Code(s): K59.00 - Constipation, unspecified Condition: Stable Record reviewed to determine appropriate education?: Yes Follow-Up: Radha Carrillo ARNP [Primary Care Provider] - Comments: Basic blood tests and CT scan did not show any significant abnormality. There was signs of moderate amount of stool in the left colon and rectum area. Consider fiber daily or possibly stool softener such as docusate 100 mg daily. Tylenol every 4-6 hours if needed for pains as I would presume her abdominal tenderness relates to some fall injury. This should improve in the next couple of days. Continue other usual medicines. Regular hydration and diet. Follow-up with your primary care if there seems to be increasing levels of anxiety or agitation to discuss possibly increasing the trazodone or adding a small second dose in the mornings etc. Discharge Date/Time: 03/17/21 15:16
[2021-03-17] MEDS ORDERED: IOVERSOL 320 100 ML VIAL IVP ONE ×2 (11:15→13:14)
--- NOTE | 2021-03-17 11:18 | XRAY Report ---
PROCEDURE: Chest 1 View X-Ray INDICATIONS: chest pain TECHNIQUE: One view of the chest was acquired. COMPARISON: 12/12/2018 FINDINGS: Surgical changes and devices: None. Lungs and pleura: No pleural effusions or pneumothorax. Lungs are clear. Mediastinum: Mediastinal contours appear normal. Heart size is normal. Bones and chest wall: No suspicious bony lesions. Overlying soft tissues appear unremarkable. IMPRESSION: No evidence acute pulmonary process. Reviewed by: Sal Chen MD on 03/17/2021 11:17 AM [facility] Approved by: Sal Chen MD on 03/17/2021 11:17 AM [facility] Station ID: [id number]
[2021-03-17 11:23] LABS: BASOPHILS % (AUTO) 0.2 %; EOSINOPHILS % (AUTO) 0.1 %; HCT - HEMATOCRIT 39.4 % (37.0-47.0); HGB - HEMOGLOBIN 12.7 g/dL (12.0-16.0); LYMPHOCYTES # (AUTO) 0.7 10^3/uL (1.5-3.5); LYMPHOCYTES % (AUTO) 5.8 %; MEAN CORPUSCULAR HEMOGLOBIN 30.8 pg (27.0-31.0); MEAN CORPUSCULAR HGB CONC 32.2 g/dL (32.0-36.0); MEAN CORPUSCULAR VOLUME 95.4 fL (81.0-99.0); MEAN PLATELET VOLUME 10.5 fL (7.9-10.8); MONOCYTES # (AUTO) 0.5 10^3/uL (0.0-1.0); MONOCYTES % (AUTO) 4.3 %; NEUTROPHILS # (AUTO) 10.7 10^3/uL (1.5-6.6); PLT - PLATELET COUNT 266 10^3/uL (130-450); RED BLOOD COUNT 4.13 10^6/uL (4.20-5.40); RED CELL DISTRIBUTION WIDTH 12.8 % (12.0-15.0)
[2021-03-17 11:37] LABS: ALBUMIN 4.3 g/dL (3.2-5.5); ALBUMIN/GLOBULIN RATIO 1.4 (1.0-2.2); BILIRUBIN,TOTAL 0.9 mg/dL (0.2-1.0); CALCIUM 9.4 mg/dL (8.5-10.3); CREATININE 1.1 mg/dL (0.4-1.0); POTASSIUM 3.7 mmol/L (3.5-5.0); TOTAL PROTEIN 7.4 g/dL (6.7-8.2)
--- NOTE | 2021-03-17 12:47 | CT Report ---
PROCEDURE: Abdomen/Pelvis W INDICATIONS: fall/found down; left upper abd tender CONTRAST: IV CONTRAST: Optiray 320 ml: 100 PO CONTRAST: *NO PO CONTRAST TECHNIQUE: After the administration of intravenous contrast, 5 mm thick sections acquired from the diaphragms to the symphysis. 5 mm thick coronal and sagittal reformats were acquired. For radiation dose reducti on, the following was used: automated exposure control, adjustment of mA and/or kV according to amber ent size. COMPARISON: None. FINDINGS: Image quality: Motion is present on multiple images, limiting areas of fine detail evaluation. ABDOMEN: Lung bases: Lung bases are clear. Heart size is normal. Solid organs: Liver and spleen are normal in size and enhancement. Gallbladder is unremarkable. Bi liary system is non dilated. Pancreas enhances normally. No adrenal nodules. Kidneys demonstrate n ormal size and enhancement. There is prominence of the left renal collecting system and renal pelvis , with normal caliber ureter. No priors are available for comparison. Peritoneum and bowel: Bowel loops demonstrate normal wall thickness and caliber. No free fluid or a ir. SIgnificant colonic stool, particularly in the sigmoid colon and recturm. No obstruction. Nodes and vessels: No retroperitoneal or mesenteric adenopathy by size criteria. Aorta and inferior vena cava are normal in size. Miscellaneous: No ventral hernias. PELVIS: Genitourinary: Bladder wall thickness is normal. Calcification is present in the uterus, likely fib roids. Miscellaneous: No inguinal hernias or adenopathy. Bones: No suspicious bony lesions. No vertebral body compression fractures. IMPRESSION: 1. Significant colonic stool with suspected impaction in the rectum. No proximal obstruction. 2. Prominence of the left renal collecting system with normal caliber ureter suggestive of UPJ obstr uction. Reviewed by: Stephani Childress MD on 03/17/2021 12:45 PM PST Approved by: Stephani Childress MD on 03/17/2021 12:45 PM PST Station ID: [id number]
[2021-03-17] MEDS ORDERED: BISACODYL 10 MG SUPP PR STA (13:07)
[2021-03-17 13:19] VITALS: BP 147/102
== END 2021-03-17 15:16 | disposition home or self-care (01) ==
LOC: EDUNIT# → ED 10:37
DX: S30.1XXA Contusion of abdominal wall, initial encounter (principal); W19.XXXA Unspecified fall, initial encounter; Y92.003 Bedroom of unspecified non-institutional (private) residence as the place of occurrence of the external cause; K59.00 Constipation, unspecified; R00.0 Tachycardia, unspecified; F03.90 Unspecified dementia, unspecified severity, without behavioral disturbance, psychotic disturbance, mood disturbance, and anxiety
CPT/HCPCS: 36415; 71045; 74177; 80053; 83690; 85025; 93005; 96374; 99283; 99284; A9270; J2060; Q9967

== ENCOUNTER 2021-03-26 14:31 | Outpatient (CLI) | payer MEDICARE, OTHER | END 2021-03-26 23:59 | disposition short-term general hospital (02) | LOC: EMS 14:31 | DX: R06.02 Shortness of breath (principal); R60.9 Edema, unspecified; F41.9 Anxiety disorder, unspecified | CPT/HCPCS: A0425; A0429 ==

== ENCOUNTER 2021-04-09 11:10 | Outpatient (CLI) | payer MEDICARE, OTHER | END 2021-04-09 11:11 | disposition short-term general hospital (02) | LOC: EMS 11:10 | DX: S09.90XA Unspecified injury of head, initial encounter (principal); S59.912A Unspecified injury of left forearm, initial encounter; W06.XXXA Fall from bed, initial encounter; Y92.003 Bedroom of unspecified non-institutional (private) residence as the place of occurrence of the external cause | CPT/HCPCS: A0425; A0427 ==